=== PATIENT | male | born 1950 | race Caucasian/White ===

== ENCOUNTER 2021-07-02 08:52 | Observation (INO) | payer MEDICARE, OTHER ==
[2021-07-02 10:00] LABS: BASO % 1.1 % (0-2.0); EOS % 2.5 % (0-4.5); HEMATOCRIT 27.2 % (35.4-49); HEMOGLOBIN 8.8 GM/dL (11.7-16.9); LYMPH % 24.2 % (8-40); MCH 25.3 pg (25.7-33.7); MCHC 32.4 g/dl (32.0-35.9); MEAN PLT VOLUME 9.5 fl (7.5-11.1); NEUT % 67.2 % (42.8-82.8); PLATELET COUNT 197 10^3/uL (134-434); RBC 3.48 M/mm3 (4.00-5.60); RDW 15.8 % (11.9-15.9); WHITE BLOOD COUNT 11.5 K/mm3 (4.0-10.0)
[2021-07-02 10:25] LABS: ALBUMIN 3.1 g/dl (3.4-5.0); BLOOD UREA NITROGEN 17.3 mg/dL (7-18); CALCIUM 8.1 mg/dL (8.5-10.1)
[2021-07-02 10:29] LABS: CREATININE 1.2 mg/dL (0.55-1.3)
[2021-07-02 10:31] LABS: BILIRUBIN,TOTAL 0.8 mg/dL (0.2-1); TOT PROT 6.8 g/dl (6.4-8.2)
[2021-07-02 10:32] LABS: N-TERMINAL BNP 197.1 pg/ml (5-125)
[2021-07-02 10:37] LABS: INR 1.32 (0.83-1.09); PROTHROMBIN TIME (PATIENT) 15.5 SEC (9.7-13.0)
[2021-07-02 10:40] LABS: ACTIVATED PTT 27.3 SECONDS (25.2-36.5)
[2021-07-02 13:32] LABS: BASO % 0.7 % (0-2.0); EOS % 0.4 % (0-4.5); HEMATOCRIT 26.1 % (35.4-49); HEMOGLOBIN 8.4 GM/dL (11.7-16.9); LYMPH % 17.7 % (8-40); MCHC 32.1 g/dl (32.0-35.9); MEAN CELL VOLUME 77.9 fl (80-96); MEAN PLT VOLUME 9.6 fl (7.5-11.1); MONO % 4.5 % (3.8-10.2); NEUT % 76.7 % (42.8-82.8); PLATELET COUNT 200 10^3/uL (134-434); RBC 3.35 M/mm3 (4.00-5.60); WHITE BLOOD COUNT 15.5 K/mm3 (4.0-10.0)
[2021-07-03 02:36] VITALS: BMI 33.6
[2021-07-03] MEDS: LEVOTHYROXINE NA 50 MCG TABLET (FP) PO SCH (06:02)
[2021-07-03 07:54] LABS: EOS % 3.9 % (0-4.5); HEMATOCRIT 22.5 % (35.4-49); HEMOGLOBIN 7.3 GM/dL (11.7-16.9); LYMPH % 33.2 % (8-40); MCH 25.3 pg (25.7-33.7); MCHC 32.5 g/dl (32.0-35.9); MEAN PLT VOLUME 9.6 fl (7.5-11.1); MONO % 6.4 % (3.8-10.2); NEUT % 55.5 % (42.8-82.8); PLATELET COUNT 163 10^3/uL (134-434); RBC 2.88 M/mm3 (4.00-5.60); RDW 15.4 % (11.9-15.9); WHITE BLOOD COUNT 11.8 K/mm3 (4.0-10.0)
[2021-07-03] MEDS ORDERED: FUROSEMIDE 20 MG TABLET (FP) PO SCH (10:00)
[2021-07-03] MEDS ORDERED: LOSARTAN 50MG/HCTZ 12.5MG 1 TAB PO SCH (10:00)
[2021-07-03] MEDS: FUROSEMIDE 40 MG/4 ML INJECTABLE VIAL IVPUSH SCH (10:09)
[2021-07-03 12:47] LABS: BILIRUBIN,TOTAL 0.6 mg/dL (0.2-1); BLOOD UREA NITROGEN 17.4 mg/dL (7-18); CALCIUM 8.2 mg/dL (8.5-10.1); CREATININE 0.8 mg/dL (0.55-1.3); TOT PROT 6.1 g/dl (6.4-8.2)
[2021-07-03] MEDS: PANTOPRAZOLE 40 MG TABLET PO SCH (17:45)
[2021-07-03 20:22] LABS: BASO % 1.4 % (0-2.0); EOS % 3.3 % (0-4.5); HEMATOCRIT 24.7 % (35.4-49); HEMOGLOBIN 7.8 GM/dL (11.7-16.9); LYMPH % 31.1 % (8-40); MCH 24.6 pg (25.7-33.7); MCHC 31.7 g/dl (32.0-35.9); MEAN CELL VOLUME 77.6 fl (80-96); MEAN PLT VOLUME 9.2 fl (7.5-11.1); MONO % 7.5 % (3.8-10.2); NEUT % 56.7 % (42.8-82.8); PLATELET COUNT 181 10^3/uL (134-434); RBC 3.18 M/mm3 (4.00-5.60); RDW 15.9 % (11.9-15.9); WHITE BLOOD COUNT 12.9 K/mm3 (4.0-10.0)
[2021-07-03] MEDS: ROSUVASTATIN CA 5 MG TABLET (FP) PO SCH (21:24)
[2021-07-04] MEDS: LEVOTHYROXINE NA 50 MCG TABLET (FP) PO SCH (06:20)
[2021-07-04 08:22] LABS: BASO % 1.4 % (0-2.0); EOS % 4.4 % (0-4.5); HEMATOCRIT 25.8 % (35.4-49); HEMOGLOBIN 8.3 GM/dL (11.7-16.9); LYMPH % 27.5 % (8-40); MCH 25.2 pg (25.7-33.7); MCHC 32.2 g/dl (32.0-35.9); MEAN CELL VOLUME 78.4 fl (80-96); MEAN PLT VOLUME 9.2 fl (7.5-11.1); MONO % 7.7 % (3.8-10.2); PLATELET COUNT 151 10^3/uL (134-434); RBC 3.29 M/mm3 (4.00-5.60); RDW 15.7 % (11.9-15.9); WHITE BLOOD COUNT 11.1 K/mm3 (4.0-10.0)
[2021-07-04] MEDS: LISINOPRIL 5 MG TABLET PO SCH (09:34)
[2021-07-04] MEDS: FUROSEMIDE 40 MG/4 ML INJECTABLE VIAL IVPUSH SCH (09:34)
[2021-07-04] MEDS: PANTOPRAZOLE 40 MG TABLET PO SCH (09:35)
[2021-07-04 11:32] LABS: BILIRUBIN,TOTAL 0.8 mg/dL (0.2-1); BLOOD UREA NITROGEN 15.1 mg/dL (7-18); CALCIUM 8.3 mg/dL (8.5-10.1); CREATININE 0.9 mg/dL (0.55-1.3); TOT PROT 6.5 g/dl (6.4-8.2)
[2021-07-04] MEDS: ACETAMINOPHEN 325 MG TABLET (FP) PO PRN (17:36)
[2021-07-04] MEDS: ROSUVASTATIN CA 5 MG TABLET (FP) PO SCH (21:21)
[2021-07-04] MEDS ORDERED: ARTIFICIAL TEARS (POLYVINYL ALCOHOL) OPTH DROPS OU PRN (21:33)
[2021-07-05] MEDS: LEVOTHYROXINE NA 50 MCG TABLET (FP) PO SCH (06:15)
[2021-07-05 07:13] LABS: BASO % 1.5 % (0-2.0); EOS % 4.3 % (0-4.5); HEMATOCRIT 27.2 % (35.4-49); HEMOGLOBIN 8.9 GM/dL (11.7-16.9); LYMPH % 26.6 % (8-40); MCH 25.4 pg (25.7-33.7); MCHC 32.7 g/dl (32.0-35.9); MEAN CELL VOLUME 77.9 fl (80-96); MEAN PLT VOLUME 9.2 fl (7.5-11.1); MONO % 6.7 % (3.8-10.2); NEUT % 60.9 % (42.8-82.8); PLATELET COUNT 167 10^3/uL (134-434); RBC 3.49 M/mm3 (4.00-5.60); WHITE BLOOD COUNT 12.7 K/mm3 (4.0-10.0)
[2021-07-05 07:49] LABS: ALBUMIN 3.2 g/dl (3.4-5.0); BILIRUBIN,TOTAL 0.7 mg/dL (0.2-1); CALCIUM 8.7 mg/dL (8.5-10.1); TOT PROT 6.9 g/dl (6.4-8.2)
[2021-07-05] MEDS: LISINOPRIL 5 MG TABLET PO SCH (10:44)
[2021-07-05] MEDS: PANTOPRAZOLE 40 MG TABLET PO SCH (10:44)
[2021-07-05] MEDS: FUROSEMIDE 40 MG/4 ML INJECTABLE VIAL IVPUSH SCH (10:49)
[2021-07-05] MEDS: ROSUVASTATIN CA 5 MG TABLET (FP) PO SCH (21:01)
[2021-07-06] MEDS: LEVOTHYROXINE NA 50 MCG TABLET (FP) PO SCH (06:22)
[2021-07-06] MEDS ORDERED: REGADENOSON 0.4 MG/5 ML PRE-FILLED SYRINGE IVPUSH ONE ×2 (09:49→10:30)
[2021-07-06] MEDS: PANTOPRAZOLE 40 MG TABLET PO SCH (11:35)
[2021-07-06] MEDS: LISINOPRIL 5 MG TABLET PO SCH (11:35)
[2021-07-06] MEDS: FUROSEMIDE 40 MG/4 ML INJECTABLE VIAL IVPUSH SCH (11:39)
[2021-07-06] MEDS: ACETAMINOPHEN 325 MG TABLET (FP) PO PRN (16:27)
[2021-07-06] MEDS ORDERED: SODIUM CHLORIDE 500 ML IV STA ×2 (21:37→22:08)
[2021-07-06] MEDS ORDERED: AZITHROMYCIN IVPB 500 MG/250 ML BAG IVPB ONE (21:41)
[2021-07-06] MEDS ORDERED: OXYMETAZOLINE 0.05% NASAL SOLUTION 15 ML BOTTLE NS PRN (21:42)
[2021-07-06 22:18] LABS: ARTERIAL BLD GAS O2 SATURATION 96.1 % (95-98); ARTERIAL BLOOD GAS BASE EXCESS 2.6 mmol/L (-2-2); ARTERIAL BLOOD GAS PO2 76.2 mmHg (80-100); ARTERIAL BLOOD GAS pH 7.475 (7.350-7.450)
[2021-07-06 22:28] LABS: ALLENS TEST POSITIVE
[2021-07-06] MEDS: ROSUVASTATIN CA 5 MG TABLET (FP) PO SCH (22:31)
[2021-07-06 22:42] LABS: BASO % 0.6 % (0-2.0); EOS % 1.9 % (0-4.5); HEMATOCRIT 23.7 % (35.4-49); HEMOGLOBIN 7.5 GM/dL (11.7-16.9); LYMPH % 26.7 % (8-40); MCHC 31.8 g/dl (32.0-35.9); MEAN CELL VOLUME 78.7 fl (80-96); MONO % 7.6 % (3.8-10.2); NEUT % 63.2 % (42.8-82.8); PLATELET COUNT 208 10^3/uL (134-434); RDW 15.9 % (11.9-15.9); WHITE BLOOD COUNT 17.7 K/mm3 (4.0-10.0)
[2021-07-06 23:01] LABS: ALBUMIN 2.7 g/dl (3.4-5.0); BLOOD UREA NITROGEN 29.8 mg/dL (7-18)
[2021-07-06 23:04] LABS: CREATININE 1.3 mg/dL (0.55-1.3)
[2021-07-06 23:05] LABS: BILIRUBIN,TOTAL 0.6 mg/dL (0.2-1); TOT PROT 6.2 g/dl (6.4-8.2)
[2021-07-06 23:08] LABS: N-TERMINAL BNP 345.8 pg/ml (5-125)
[2021-07-06 23:17] LABS: CALCIUM 7.3 mg/dL (8.5-10.1)
[2021-07-07] MEDS ORDERED: SODIUM CHLORIDE 0.9% 500 ML INFUS.BAG IV ONE (00:19)
[2021-07-07] MEDS: PANTOPRAZOLE SODIUM 40 MG VIAL IVPUSH SCH ×2 (00:51→09:41)
[2021-07-07 04:26] LABS: URINE APPEARANCE CLEAR; URINE BILIRUBIN NEGATIVE (NEGATIVE); URINE COLOR YELLOW; URINE GLUCOSE (UA) NEGATIVE (NEGATIVE); URINE KETONE 1+ (NEGATIVE); URINE LEUK ESTERASE NEGATIVE (NEGATIVE); URINE NITRITE NEGATIVE (NEGATIVE); URINE PROTEIN NEGATIVE (NEGATIVE)
[2021-07-07] MEDS: LEVOTHYROXINE NA 50 MCG TABLET (FP) PO SCH (06:03)
[2021-07-07] MEDS ORDERED: metoPROLOL SUCCINATE 25 MG TAB.SR.24H (FP) PO SCH (10:00)
[2021-07-07] MEDS ORDERED: AZITHROMYCIN IVPB 250 MG in DEXTROSE 5%-WATER - 250 ML IVPB SCH (10:00)
[2021-07-07 10:40] LABS: ALBUMIN 2.6 g/dl (3.4-5.0); BLOOD UREA NITROGEN 28.7 mg/dL (7-18); CALCIUM 7.5 mg/dL (8.5-10.1)
[2021-07-07 10:43] LABS: CREATININE 0.9 mg/dL (0.55-1.3)
[2021-07-07 10:45] LABS: BILIRUBIN,TOTAL 0.6 mg/dL (0.2-1); TOT PROT 5.8 g/dl (6.4-8.2)
[2021-07-07 10:46] LABS: BASO % 0.7 % (0-2.0); LYMPH % 22.5 % (8-40); MCHC 31.7 g/dl (32.0-35.9); MEAN CELL VOLUME 78.8 fl (80-96); MEAN PLT VOLUME 9.4 fl (7.5-11.1); MONO % 5.4 % (3.8-10.2); NEUT % 69.4 % (42.8-82.8); PLATELET COUNT 163 10^3/uL (134-434); RBC 2.67 M/mm3 (4.00-5.60); RDW 15.9 % (11.9-15.9); WHITE BLOOD COUNT 15.7 K/mm3 (4.0-10.0)
[2021-07-07 11:24] LABS: HEMOGLOBIN 6.7 GM/dL (11.7-16.9)
[2021-07-07 15:58] VITALS: PULSE 86; TEMP 98.3
[2021-07-07 18:35] VITALS: BP 119/70
== END 2021-07-07 21:00 | disposition short-term general hospital (02) ==
LOC: JER 08:52 → JERBED 11:23 → UNDOADMOB 11:23 → INTOOBSV 11:23 → JERBED 07-03 02:04 → J4S 07-03 02:04 → OBSVTOIN 07-03 13:41 → JERBED 07-03 13:41 → J4S 07-03 13:41 → INTOOBSV 07-03 13:41
PROVIDERS: ADMIT Internal Medicine; ATTEND Internal Medicine
PROC: 3E03329 Introduction of Other Anti-infective into Peripheral Vein, Percutaneous Approach (ICD-10-PCS; principal; 2021-07-03)
PROC: 3E033GC Introduction of Other Therapeutic Substance into Peripheral Vein, Percutaneous Approach (ICD-10-PCS; 2021-07-03)
PROC: 3E0337Z Introduction of Electrolytic and Water Balance Substance into Peripheral Vein, Percutaneous Approach (ICD-10-PCS; 2021-07-03)
DX: R04.0 Epistaxis (principal); R06.02 Shortness of breath; I95.1 Orthostatic hypotension; E66.9 Obesity, unspecified; Z68.33 Body mass index [BMI] 33.0-33.9, adult; F17.210 Nicotine dependence, cigarettes, uncomplicated; F10.99 Alcohol use, unspecified with unspecified alcohol-induced disorder; I10 Essential (primary) hypertension; D64.9 Anemia, unspecified
CPT/HCPCS: 36415; 36430; 36511; 36600; 71045-TC-FY; 71046-TC-FY; 78452-TC; 80053; 80061; 81003; 82272; 82550; 82553; 82803; 83036; 83880; 84439; 84443; 84484; 85025; 85610; 85730; 86850; 86900; 86901; 86922; 93005; 93010; 93017; 93306-TC; 96361; 96365; 96375; 99285-25; A9502; C9803; G0378; J2785; P9016; P9038; P9058; U0003; U0005

== ENCOUNTER 2024-03-26 20:14 | Emergency (ER) | payer MEDICARE, OTHER ==
[2024-03-26 20:26] VITALS: BP 125/83; PULSE 87; RESP 19; TEMP 98.6; BMI 29.4
[2024-03-26] MEDS: DAPTOMYCIN 850 MG in SODIUM CHLORIDE 50 ML IVPB ONE (23:43)
== END 2024-03-27 00:11 | disposition home or self-care (01) ==
LOC: JER 20:14
DX: T82.594A Other mechanical complication of infusion catheter, initial encounter (principal); Y83.1 Surgical operation with implant of artificial internal device as the cause of abnormal reaction of the patient, or of later complication, without mention of misadventure at the time of the procedure
CPT/HCPCS: 96365; 99284-25; J0878